=== PATIENT | female | born 1955 | race African-American/Black ===

== ENCOUNTER 2017-12-17 10:31 | Emergency (ER) | payer MEDICARE, MEDICAID ==
[~2017-12-17] VITALS: Ht 160 cm; Wt 93.0 kg
[2017-12-17] MEDS ORDERED: wellbutrin (10:55)
[2017-12-17] MEDS ORDERED: IBUPROFEN 400MG TABLET PO ONE (13:45)
[2017-12-17 15:11] VITALS: BP 111/62
== END 2017-12-17 15:12 | disposition home or self-care (01) ==
LOC: ER 11:13
DX: M79.622 Pain in left upper arm (principal); Z98.890 Other specified postprocedural states; Z85.3 Personal history of malignant neoplasm of breast; Z92.21 Personal history of antineoplastic chemotherapy; Z87.891 Personal history of nicotine dependence; E78.00 Pure hypercholesterolemia, unspecified
CPT/HCPCS: 93971; 99284

== ENCOUNTER 2021-05-22 07:30 | Day surgery (SDC) | payer MEDICARE ==
[~2021-05-22 07:30] MED LIST: wellbutrin
[2021-05-22 10:13] LABS: HEMATOCRIT 30.2 % (36.0-48.0); HEMOGLOBIN 10.4 g/dL (12.0-16.0); MEAN CORPUSCULAR HEMOGLOBIN 40.3 pg (28.0-32.0); MEAN CORPUSCULAR VOLUME 117.1 fL (81.0-99.0); PLATELET 133 x1000/uL (130-400); RED BLOOD CELL COUNT 2.58 mill/uL (4.2-5.4)
[2021-05-22 10:24] LABS: INR 1.1; PROTHROMBIN TIME 11.4 sec (9.6-11.0)
[2021-05-22] MEDS ORDERED: MIDAZOLAM HCL 2 MG/2 ML VIAL ONE ×2 (10:28→10:57)
[2021-05-22] MEDS ORDERED: FENTANYL CITRATE/PF 50MCG/ML 2ML VIAL ONE (10:28)
[2021-05-22] MEDS ORDERED: PROPOFOL 200MG/20ML VIAL IV ONE (10:57)
[2021-05-22] MEDS ORDERED: SUCCINYLCHOLINE CHLORIDE 200MG/10ML IV ONE (10:57)
== END 2021-05-22 13:30 | disposition home or self-care (01) ==
LOC: CCL 07:30
PROVIDERS: ATTEND Internal Medicine Cardiovascular Disease
DX: I48.92 Unspecified atrial flutter (principal); R94.31 Abnormal electrocardiogram [ECG] [EKG]; I10 Essential (primary) hypertension; J44.9 Chronic obstructive pulmonary disease, unspecified; Z85.3 Personal history of malignant neoplasm of breast; Z79.899 Other long term (current) drug therapy; Z98.890 Other specified postprocedural states
CPT/HCPCS: 36415; 80048; 85027; 85610; 92960; 93005; J0330; J2250; J2704; J3010